=== PATIENT | female | born 1975 | race Caucasian/White ===

== ENCOUNTER 2019-03-17 07:30 | Day surgery (SDC) | payer OTHER ==
[~2019-03-17] VITALS: Ht 160 cm; Wt 86.2 kg
[~2019-03-17 07:30] MED LIST: CEFAZOLIN SOD 1 GM in D5W 50 ML IV ONE
[2019-03-17] MEDS ORDERED: POLYMYXIN 500,000/BACIT.10,000 UNITS in NS IRR 1 L IR ONE (09:18)
[2019-03-17] MEDS ORDERED: BUPIVACAINE /EPINEPHRINE/PF 0.25% 30 ML VIAL INJ ONE (09:30)
[2019-03-17] MEDS ORDERED: NS IRRIG SOLN 1000 ML IR ONE (09:30)
[2019-03-17] MEDS ORDERED: ATRACURIUM BESYLATE 100 MG/10 ML VIAL (ATRACURIUM) IV ONE (09:30)
[2019-03-17] MEDS ORDERED: NS 1000 ML IV.SOLN IV ONE (09:30)
[2019-03-17] MEDS ORDERED: fentaNYL CITRATE/PF 100 MCG/2 ML AMP IVP ONE (09:30)
[2019-03-17] MEDS ORDERED: ATROPINE SULFATE 0.4 MG/ML VIAL IVP ONE (09:30)
[2019-03-17] MEDS ORDERED: PROPOFOL 200MG/ 20ML VIAL (DIPRIVAN) IV ONE (09:30)
[2019-03-17] MEDS ORDERED: MIDAZOLAM HCL 5 MG/5 ML VIAL IVP ONE (09:30)
[2019-03-17] MEDS ORDERED: ONDANSETRON HCL 4 MG/2 ML VIAL IVP ONE (09:30)
[2019-03-17] MEDS ORDERED: SEVOFLURANE 15 MIN GAS INH ONE (09:30)
[2019-03-17] MEDS ORDERED: HEPARIN SODIUM,PORCINE 10,000 UNIT/ML VIAL IV ONE (09:30)
[2019-03-17] MEDS ORDERED: LR 1,000 ML IV SCH (10:11)
[2019-03-17] MEDS ORDERED: METOCLOPRAMIDE HCL 10 MG/2 ML VIAL IVP PRN (10:15)
[2019-03-17] MEDS ORDERED: MORPHINE 4 MG/ML INJ. SYRINGE IVP PRN ×3 (10:15)
[2019-03-17] MEDS ORDERED: D5/0.45 NS 1,000 ML IV SCH (10:34)
[2019-03-17] MEDS ORDERED: HYDROmorphone 1 MG INJ. 1 MG/ML AMPUL IVP PRN (10:45)
[2019-03-17] MEDS ORDERED: HYDROcodone/ACETAMIN 5-325 MG TAB (NORCO/ VICODIN) PO PRN ×2 (10:45)
[2019-03-17] MEDS ORDERED: HYDROcodone/ACETAMIN 5-325 MG TAB (NORCO/ VICODIN) ONE (12:06)
[2019-03-17 12:23] VITALS: BP_SYST 129
== END 2019-03-17 12:50 | disposition home or self-care (01) ==
LOC: SMU 07:30 → SDS 07:30
PROVIDERS: ATTEND Colon & Rectal Surgery
DX: C55 Malignant neoplasm of uterus, part unspecified (principal); R91.8 Other nonspecific abnormal finding of lung field; E66.3 Overweight; Z87.891 Personal history of nicotine dependence
CPT/HCPCS: 36561; 71045; 77001; C1788; J0461; J0690; J1644; J2250; J2405; J2704; J3010; J3490; J7030; J7060; J7120; 76000